=== PATIENT | female | born 2000 | race Caucasian/White ===

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

== ENCOUNTER → 2018-07-23 | Outpatient (CLI) | payer OTHER ==
--- NOTE | 2018-07-23 13:36 | US ---
EXAMINATION TYPE: US gallbladder DATE OF EXAM: 07/23/2018 COMPARISON: CT 2016 CLINICAL HISTORY: Cholecystitis K81.9. Hiatal hernia; epigastric and right lateral abd. pain EXAM MEASUREMENTS: Liver Length: 20.2 cm Gallbladder Wall: 0.2 cm CBD: 0.5 cm Right Kidney: 9.4 x 4.5 x 4.0 cm (large body habitus) Pancreas: mid and tail obscured by bowel gas Liver: enlarged and fatty as is hyperechoic to right renal cortex and vessels are limitedly seen Gallbladder: wnl Evidence for sonographic Ni's sign: no CBD: wnl Right Kidney: No hydronephrosis or masses seen Visualized portion of pancreas is unremarkable though there is suboptimal evaluation overall due to s hadowing from overlying bowel gas. Visualized liver is heterogeneously hyperechoic without intrahepat ic ductal dilatation. Evaluation for focal masses is suboptimal due to the heterogeneity. Suspect dif fuse fatty infiltration. Gallbladder is identified without shadowing mobile gallstones. Limited image s right kidney show no gross hydronephrosis. IMPRESSION: No gallstones or ultrasound evidence for acute cholecystitis.
--- NOTE | 2018-07-23 15:46 | NM ---
EXAMINATION TYPE: NM hepatobiliary w EF DATE OF EXAM: 07/23/2018 COMPARISON: Gallbladder ultrasound earlier today. HISTORY: Cholecystitis per order. Epigastric and abdominal pain with decreased appetite heartburn, re flux, and nausea per patient. TECHNIQUE: After the intravenous administration of 5.36 mCi Tc 99m Mebrofenin hepatobiliary scintigra phy is performed. Immediate images post injection. FINDINGS: There is satisfactory initial accumulation of tracer by the liver. The gallbladder is visualized wit hin 26 minutes. The small bowel activity is noted within 20 minutes. At one hour 8 ounces of oral e nsure plus is given to mimic CCK and gallbladder ejection fraction is calculated at 67 %, in the norm al range. Therefore there is no scintigraphic evidence of cystic or common bile duct obstruction to suggest acute cholecystitis or gallbladder dyskinesia. IMPRESSION: Exam is within normal limits.
== END | disposition home or self-care (01) ==
LOC: RADUSMAIN 12:34
PROVIDERS: ATTEND Surgery Plastic and Reconstructive Surgery
DX: K81.9 Cholecystitis, unspecified (principal); K21.9 Gastro-esophageal reflux disease without esophagitis
CPT/HCPCS: 76705; 78226; A9537

== ENCOUNTER 2018-08-13 12:11 | Day surgery (SDC) | payer OTHER ==
[2018-08-11 10:31] VITALS: BMI 59.8
--- NOTE | 2018-08-13 06:03 | P.GSHP ---
History of Present Illness H&P Date: 08/13/18 CHIEF COMPLAINT: GERD HISTORY OF PRESENT ILLNESS: The patient is a 17-year-old female who presents reports gastroesophageal reflux disease. Upper endoscopy was offered for further evaluation and management. PAST MEDICAL HISTORY: Please see list. PAST SURGICAL HISTORY: Please see list. MEDICATIONS: Please see list. ALLERGIES: Please see list. SOCIAL HISTORY: No illicit drug use FAMILY HISTORY: No reports of Crohn disease or ulcerative colitis. REVIEW OF ORGAN SYSTEMS: CONSTITUTIONAL: No reports of fevers or chills. GI: Denies any blood in stools or constipation. PHYSICAL EXAM: VITAL SIGNS: Stable GENERAL: Well-developed and pleasant in no acute distress. HEENT: No scleral icterus. Extraocular movements grossly intact. Moist buccal mucosa. NECK: Supple without lymphadenopathy. CHEST: Unlabored respirations. Equal bilateral excursions. CARDIOVASCULAR: Regular rate and rhythm. Distal 2+ pulses. ABDOMEN: Soft, nondistended. MUSCULOSKELETAL: No clubbing, cyanosis, or edema. ASSESSMENT: 1. Gastroesophageal reflux disease PLAN: 1. Recommend proceeding with an upper endoscopy Past Medical History Past Medical History: Asthma, Hypertension Additional Past Medical History / Comment(s): obesity , gestational DM chronic back herniated discs depression, abdominal hernia History of Any Multi-Drug Resistant Organisms: None Reported Past Surgical History: No Surgical Hx Reported Additional Past Surgical History / Comment(s): IUD in place., EGD, Past Anesthesia/Blood Transfusion Reactions: No Reported Reaction Additional Past Anesthesia/Blood Transfusion Reaction / Comment(s): Patient was adopted, family hx uncertain. Smoking Status: Current every day smoker - Past Family History Mother History Unknown: Yes Family Medical History: Unable to Obtain Additional Family Medical History / Comment(s): Pt adopted. Father History Unknown: Yes Family Medical History: Unable to Obtain Additional Family Medical History / Comment(s): ADOPTED Son(s) Family Medical History: No Reported History Medications and Allergies Home Medications Medication Instructions Recorded Confirmed Type Acyclovir [Zovirax] 400 mg PO BID #28 tablet 03/25/17 08/11/18 Rx QUEtiapine [SEROquel] 100 mg PO DAILY 08/11/18 08/11/18 History Allergies Allergy/AdvReac Type Severity Reaction Status Date / Time adhesive tape Allergy Rash/Hives Verified 08/11/18 10:20
[2018-08-13 12:44] VITALS: TEMP 99
[2018-08-13] MEDS ORDERED: LIDOCAINE 1% 20 ML VIAL (10MG/ML) FOR IV START INTRADERMA ONE (12:53)
[2018-08-13] MEDS ORDERED: PROPOFOL 10 MG/ML 20 ML VIAL IV ONE (13:28)
--- NOTE | 2018-08-13 13:45 | P.PCN ---
Date of Procedure: 08/13/18 Description of Procedure: PREOPERATIVE DIAGNOSIS: Gastroesophageal reflux disease. Morbid obesity. POSTOPERATIVE DIAGNOSIS: Morbid obesity. Gastritis. Gastroesophageal reflux disease. Diaphragmatic hiatal hernia Erosive esophagitis OPERATION: Esophagogastroduodenoscopy with biopsies along antrum. SURGEON: Aviva Bourgeois MD ANESTHESIA: MAC. INDICATIONS: The patient is a 17-year-old female who presents with a history of reflux disease. Benefits and risks of the procedure were described. Informed consent was obtained. DESCRIPTION: The patient was brought into the endoscopy suite and laid in the left lateral decubitus position. An Olympus gastroscope was passed along the posterior oropharynx down to the distal esophagus where the squamocolumnar junction was encountered at 30 cm from the incisors. The stomach was entered and no bile reflux was found. Additional findings are listed below. Biopsies with cold forceps were obtained of the antrum. The first through third portion of the duodenum was examined and unremarkable. Retroflexion of the scope confirmed Hill grade 4 lower esophageal valve. The squamocolumnar junction demonstrated LA grade C erosive esophagitis. The stomach was desufflated. The patient tolerated the procedure well. FINDINGS: Squamocolumnar junction 30 cm from the incisors. Diaphragmatic hiatus at 35 cm. Hiatal hernia, 5 cm Hill grade 4 lower esophageal valve. LA grade C erosive esophagitis. No active duodenitis. Chronic gastritis RECOMMENDATIONS: Upper endoscopy as needed. Plan - Discharge Summary Discharge Rx Participant: No New Discharge Prescriptions: New Omeprazole 40 mg PO DAILY #30 capsule. No Action Acyclovir [Zovirax] 400 mg PO BID #28 tablet QUEtiapine [SEROquel] 100 mg PO DAILY Discharge Medication List Acyclovir [Zovirax] 400 mg PO BID #28 tablet 03/25/17 [Rx] QUEtiapine [SEROquel] 100 mg PO DAILY 08/11/18 [History] Omeprazole 40 mg PO DAILY #30 capsule. 08/13/18 [Rx] Follow up Appointment(s)/Referral(s): Aviva Bourgeois MD [STAFF PHYSICIAN] - 09/07/18 Patient Instructions/Handouts: *Surgery [facility] - (Anesthesia) Endoscopy Discharge Instructions, Upper Endoscopy (DC), Hiatal Hernia (DC), Esophagitis (DC) Activity/Diet/Wound Care/Special Instructions: New prescription for local pharmacy. Notify office for new diarrhea and abdominal pain. Discharge Disposition: HOME SELF-CARE
[2018-08-13 13:50] VITALS: RESP 17
[2018-08-13 13:56] VITALS: BP 138/81; PULSE 79
== END 2018-08-13 14:15 | disposition home or self-care (01) ==
LOC: ORWHC2ENDO 12:11
PROVIDERS: ATTEND Surgery Plastic and Reconstructive Surgery
DX: K29.50 Unspecified chronic gastritis without bleeding (principal); J45.909 Unspecified asthma, uncomplicated; I10 Essential (primary) hypertension; E66.01 Morbid (severe) obesity due to excess calories; K21.0 Gastro-esophageal reflux disease with esophagitis; K22.10 Ulcer of esophagus without bleeding; K44.9 Diaphragmatic hernia without obstruction or gangrene; F17.200 Nicotine dependence, unspecified, uncomplicated; F32.9 Major depressive disorder, single episode, unspecified; Z79.899 Other long term (current) drug therapy; Z91.048 Other nonmedicinal substance allergy status
CPT/HCPCS: 81025; 88305; 43239; J2704

== ENCOUNTER → 2018-09-30 | Day surgery (SDC) | payer OTHER ==
[2018-09-24 16:16] VITALS: BMI 59.8
[~2018-09-30] MED LIST changes: +ALBUTEROL INHALER 60 PUFF/8 GM INHALER INHALATION ONE; +BUPIVACAIN-EPI 0.25%-1:200,000 30 ML VIAL SQ ONE; +DEXAMETHASONE SOD PHOSPHATE 10 MG/ML 1 ML VIAL IV ONE; +GLYCOPYRROLATE 0.2 MG/ML 2 ML VIAL ONE; +HEPARIN SODIUM,PORCINE 5,000 UNIT/ML 1 ML VIAL SQ ONE; +HYDROcodone/APAP 5-325MG 1 EACH TAB PO ONE; +HYDROmorphone 0.5 MG/0.5 ML SYRINGE IVP PRN; +INDOCYANINE GREEN 25 MG VIAL IV ONE; +INDOCYANINE GREEN 25 MG VIAL IV STA; +LACTATED RINGERS 1,000 ML IV ONE; +LIDOCAINE 1% 20 ML VIAL (10MG/ML) FOR IV START INTRADERMA PRN; +LIDOCAINE 1% INJ 10MG/ML (20 ML MDV) ONE; +MIDAZOLAM 2 MG/2 ML VIAL IV PRN; +MIDAZOLAM 2 MG/2 ML VIAL ONE; +NEOSTIGMINE 1 MG/ML 10 ML VIAL ONE; +ONDANSETRON 4 MG/2 ML VIAL IVP ONE; +PROPOFOL 10 MG/ML 20 ML VIAL IV ONE; +ROCURONIUM BROMIDE 10 MG/ML 10 ML VIAL IV ONE; +SCOPOLAMINE 1.5MG/72HR PATCH TRANSDERM ONE; +ceFAZolin 3 GM in SODIUM CHLORIDE 0.9% 100 ML IVPB ONE; +fentaNYL (PF) 50 MCG/ML 2 ML AMP ONE
--- NOTE | 2018-09-30 11:34 | P.GSHP ---
History of Present Illness H&P Date: 09/30/18 CHIEF COMPLAINT: Cholecystitis HISTORY OF PRESENT ILLNESS: The patient is a 17-year-old female who presents with history of epigastric including right upper quadrant abdominal pain. She underwent diagnostic studies for her gallbladder. Separately her clinical picture was consistent with cholecystitis. Now she presents for surgical intervention. PAST MEDICAL HISTORY: Please see list PAST SURGICAL HISTORY: Please see list MEDICATIONS: Please see list ALLERGIES: Denies. SOCIAL HISTORY: No illicit drug use or recent tobacco use FAMILY HISTORY: Pertinent for gallbladder disease REVIEW OF ORGAN SYSTEMS: CONSTITUTIONAL: No reports of fevers or chills. HEENT: Denies any troubles with the vision or hearing. PHYSICAL EXAM: VITAL SIGNS: Afebrile vital signs stable GENERAL: Well-developed pleasant in no acute distress. HEENT: No scleral icterus. Extraocular movements grossly intact. Moist buccal mucosa. NECK: Supple without lymphadenopathy. CHEST: Unlabored respirations. Equal bilateral excursions. CARDIOVASCULAR: Regular rate regular rhythm rhythm. Distal 2+ pulses. ABDOMEN: Soft, nondistended. Tender along the epigastrium and right upper quadrant. MUSCULOSKELETAL: No clubbing, cyanosis, or edema. NEURO: Cranial nerves II to XII within normal limits. No focal or lateralizing signs. PSYCH: Alert and oriented to person, place and time. SKIN: Well-perfused good skin turgor. ASSESSMENT: 1. Epigastric and right upper quadrant abdominal pain 2. Chronic cholecystitis 3. Symptomatic gallstones. PLAN: 1. Will need a robotic cholecystectomy possible open. Benefits and risks were described. 2. Heparin for DVT prophylaxis 5000 units. 3. Antibiotic prophylaxis. Past Medical History Past Medical History: Asthma, GERD/Reflux, Hyperlipidemia, Hypertension, Osteoarthritis (OA), Sleep Apnea/CPAP/BIPAP Additional Past Medical History / Comment(s): Obesity. Hx Gestational DM. Herniated discs, abdominal hernia. Hx anemia. No CPAP use. History of Any Multi-Drug Resistant Organisms: None Reported Past Surgical History: No Surgical Hx Reported Additional Past Surgical History / Comment(s): IUD placement, EGD. Past Anesthesia/Blood Transfusion Reactions: No Reported Reaction Additional Past Anesthesia/Blood Transfusion Reaction / Comment(s): Patient was adopted, family hx uncertain. Past Psychological History: Depression, Schizoaffective Disorder Smoking Status: Current every day smoker Past Alcohol Use History: Occasional Additional Past Alcohol Use History / Comment(s): Has been smoking since last month, 4 cigarettes per day. Past Drug Use History: Marijuana Additional Drug Use History / Comment(s): Pt states that she smokes Marijuana twice daily. Aware no use 24 hrs prior to procedure. - Past Family History Mother History Unknown: Yes Family Medical History: Unable to Obtain Additional Family Medical History / Comment(s): Pt adopted. Father History Unknown: Yes Family Medical History: Unable to Obtain Additional Family Medical History / Comment(s): ADOPTED Son(s) Family Medical History: No Reported History Medications and Allergies Home Medications Medication Instructions Recorded Confirmed Type Acyclovir [Zovirax] 400 mg PO BID #28 tablet 03/25/17 09/24/18 Rx QUEtiapine [SEROquel] 150 mg PO HS 08/11/18 09/24/18 History Hydrochlorothiazide 12.5 mg PO DAILY 09/24/18 09/24/18 History Omeprazole 40 mg PO QAM 09/24/18 09/24/18 History Allergies Allergy/AdvReac Type Severity Reaction Status Date / Time adhesive tape Allergy Rash/Hives Verified 09/24/18 16:16
[2018-09-30 14:16] LABS: Basophils # (A) 0.1 k/uL (0-0.2); Basophils % (A) 1 %; Eosinophils # (A) 0.3 k/uL (0-0.7); Eosinophils % (A) 3 %; HCT 42.8 % (34.0-46.0); HGB 14.5 gm/dL (11.4-16.0); Lymphocytes # (A) 2.4 k/uL (1.0-4.8); Lymphocytes % (A) 21 %; MCH 28.4 pg (25.0-35.0); MCHC 33.8 g/dL (31.0-37.0); MCV 83.9 fL (80.0-100.0); Mean Platelet Volume 8.8; Monocytes # (A) 0.8 k/uL (0-1.0); Monocytes % (A) 7 %; Neutrophils # (A) 7.8 k/uL (1.3-7.7); Neutrophils % (A) 69 %; Platelet Count 272 k/uL (150-450); RBC 5.11 m/uL (3.80-5.40); RDW 13.1 % (11.5-15.5); WBC 11.3 k/uL (4.0-11.0)
[2018-09-30 14:18] LABS: ALT 60 U/L (9-52); AST 52 U/L (14-36); Albumin 4.3 g/dL (3.5-5.0); Alkaline Phosphatase 86 U/L (38-126); Anion Gap 9 mmol/L; Blood Urea Nitrogen 16 mg/dL (7-17); Calcium 9.2 mg/dL (8.4-10.2); Carbon Dioxide 22 mmol/L (22-30); Chloride 107 mmol/L (98-107); Glucose 95 mg/dL (74-99); Sodium 138 mmol/L (137-145); Total Protein 7.2 g/dL (6.3-8.2)
[2018-09-30 15:58] VITALS: TEMP 97.3
--- NOTE | 2018-09-30 16:13 | P.OP ---
Date of Procedure: 09/30/18 Description of Procedure: SURGEON: AVIVA BOURGEOIS MD PREOPERATIVE DIAGNOSES: 1. Right upper quadrant abdominal pain 2. Chronic cholecystitis 3. Morbid obesity due to excess calories, BMI 59.8 4. Bipolar disorder 5. Hypertensive heart disease 6. Gastroesophageal reflux disease POSTOPERATIVE DIAGNOSES: 1. Right upper quadrant abdominal pain 2. Chronic cholecystitis 3. Morbid obesity due to excess calories, BMI 59.8 4. Bipolar disorder 5. Hypertensive heart disease 6. Gastroesophageal reflux disease 7. Fatty liver disease 8. Hepatomegaly OPERATION: Robotic-assisted da Markell Xi laparoscopic cholecystectomy, multiport with FIREFLY ESTIMATED BLOOD LOSS: 5 mL. SPECIMENS REMOVED: Gallbladder. COMPLICATIONS: None. OPERATIVE FINDINGS: 1. Chronic cholecystitis 2. Hepatomegaly severe with fatty liver disease severe 3. Console time 22 minutes INDICATIONS: The patient is a 17-year-old female who presents with cholelcystitis. Surgical intervention with a laparoscopic cholecystectomy was described at length including injury to the biliary tree, bleeding, infection, need for further surgery. Informed consent was obtained. Robotic assisted laparoscopic approach was described. Benefits and risks of the procedure including but not limited to bleeding, infection, injury to the biliary tree was described. Informed consent was obtained. DESCRIPTION OF PROCEDURE: Patient was brought to the operating room, placed in supine position. After general induction, the abdomen had been prepped and draped in standard sterile fashion. The robotic da Markell XI system was primed. After a timeout protocol was performed, the patient had been prepped and draped in standard sterile fashion. The patient was injected with indocyanine green. A 5 mm 0 degrees laparoscopic trocar entry was performed along the left upper quadrant. The abdomen insufflated to 15 mmHg pressure which was tolerated well. Diagnostic laparoscopy demonstrated no injury to bowel viscera or mesentery. The liver surface was unremarkable. Next, two 8 mm robotic ports were placed along the right upper abdomen. The camera 8-mm port was maintained along the epigastrium. Another 8 mm port was placed along the left upper abdominal wall after exchanging the 5 mm port. Please note that the ports were placed at least 10 to 15 cm away from the target anatomy of the gallbladder. The robot was docked along the left lateral abdomen. The patient was repositioned in reverse Trendelenburg position. Using a grasper for arm 3, a grasper for arm 4, including hook cautery for arm 1, the robotic system was docked and primed as described. Instruments were interchanged by the digital sales assistant including hook cautery, Bovie cautery and clip appliers. I had sat at the console. The gallbladder fundus was retracted over the dome of the liver. Initial attention was brought to the infundibulum which was gently retracted in the inferior lateral approach. Using a grasper, the cystic duct including the cystic artery was carefully skeletonized. FIREFLY was used to identify the cystic artery and cystic structures. Large PLASTIC clips were used throughout the entire case. Using a clip gravity prospecting operator helper 2 clips were placed proximally, and 1 clip was placed distally along the cystic duct and then cauterized with the cautery. Again care was taken to avoid any injury to the biliary tree as the common bile duct was clearly visualized during this portion of dissection. Next, the cystic artery was similarly clipped and cauterized. Electro-Bovie cautery was used to remove the gallbladder from the hepatic fossa. Hemostasis was checked and found to be adequate. The robot was undocked. I re-scrubbed into the case. Using a 10 mm Endo Catch bag via the left upper quadrant incision, the specimen was removed from the abdominal cavity. All pneumoperitoneum instruments were evacuated from the abdominal cavity. The incisions were reapproximated using 4-0 Monocryl in an interrupted subcuticular fashion. Fascial defects were less than 8 mm in size. Please note along the trocar sites, local anesthetic was placed as a field block prior to insertion of all instruments. Liquid glue was applied to the skin. At the end of the procedure needle, sponge, and instrument count had been verified correct by the neurosurgical nurse practitioner. The patient was transferred to postanesthesia care unit in stable condition. Intraoperative films were shared with the patient's family who were very pleased with the level of care. Plan - Discharge Summary Discharge Rx Participant: No New Discharge Prescriptions: New Ibuprofen [Motrin] 600 mg PO Q8HR PRN #30 tab PRN Reason: Pain HYDROcodone/APAP 5-325MG [[place] 5-325] 1 tab PO Q6HR PRN 3 Days #10 tab PRN Reason: Pain Continue Acyclovir [Zovirax] 400 mg PO BID #28 tablet QUEtiapine [SEROquel] 150 mg PO HS Hydrochlorothiazide 12.5 mg PO DAILY Omeprazole 40 mg PO QAM Discharge Medication List Acyclovir [Zovirax] 400 mg PO BID #28 tablet 03/25/17 [Rx] QUEtiapine [SEROquel] 150 mg PO HS 08/11/18 [History] Hydrochlorothiazide 12.5 mg PO DAILY 09/24/18 [History] Omeprazole 40 mg PO QAM 09/24/18 [History] HYDROcodone/APAP 5-325MG [[place] 5-325] 1 tab PO Q6HR PRN 3 Days #10 tab 09/30/18 [Rx] Ibuprofen [Motrin] 600 mg PO Q8HR PRN #30 tab 09/30/18 [Rx] Follow up Appointment(s)/Referral(s): Aviva Bourgeois MD [STAFF PHYSICIAN] - 10/05/18 Patient Instructions/Handouts: Low Fat Diet (DC), Laparoscopic Cholecystectomy (DC) Activity/Diet/Wound Care/Special Instructions: No lifting over 10 pounds in 1 week. May shower. No bath tub soaks. Low-fat diet. Discharge Disposition: HOME SELF-CARE
[2018-09-30 18:10] VITALS: BP 116/80; PULSE 97; RESP 20
== END | disposition home or self-care (01) ==
LOC: OR 11:51
PROVIDERS: ATTEND Surgery Plastic and Reconstructive Surgery
DX: K81.1 Chronic cholecystitis (principal); E66.01 Morbid (severe) obesity due to excess calories; Z68.43 Body mass index [BMI] 50.0-59.9, adult; F31.9 Bipolar disorder, unspecified; I11.9 Hypertensive heart disease without heart failure; K21.9 Gastro-esophageal reflux disease without esophagitis; K76.0 Fatty (change of) liver, not elsewhere classified; R16.0 Hepatomegaly, not elsewhere classified; E78.5 Hyperlipidemia, unspecified; J45.909 Unspecified asthma, uncomplicated; B00.9 Herpesviral infection, unspecified; M19.90 Unspecified osteoarthritis, unspecified site; G47.33 Obstructive sleep apnea (adult) (pediatric); F17.210 Nicotine dependence, cigarettes, uncomplicated; Z79.1 Long term (current) use of non-steroidal anti-inflammatories (NSAID); Z79.899 Other long term (current) drug therapy; Z91.09 Other allergy status, other than to drugs and biological substances; Z99.89 Dependence on other enabling machines and devices
CPT/HCPCS: 47562; S2900; 80053; 81025; 85025; 88304

== ENCOUNTER 2019-02-12 18:14 | Emergency (ER) | payer OTHER ==
[2019-02-12] MEDS ORDERED: HYDROcodone/APAP 7.5-325MG 1 EACH TAB PO ONE (19:23)
[2019-02-12] MEDS ORDERED: ACET/COD 300 MG/30 MG STARTER PACK 6 TAB BTL PO STA (19:57)
--- NOTE | 2019-02-12 19:57 | ED ---
General Adult HPI - General Chief complaint: Burn/Smoke Inhalation Stated complaint: Burn on hand Time Seen by Provider: 02/12/19 19:13 Source: patient, family, RN notes reviewed, old records reviewed Mode of arrival: ambulatory Limitations: no limitations - History of Present Illness Initial comments: 18-year-old female patient presents the chief complaint of burn to left hand. Patient reports that she was cooking with the spatula on the stovetop. Patient reports that she then touched the spatula. Patient had some plastic stuck on the second digit of her left hand. Patient reports that she removed the plastic and does have a burn. Patient tetanus is up-to-date. Denies any other complaints. Systemic: Pt denies fatigue, fever/chills, rash. Pt denies weakness, night sweats, weight loss. Neuro: Pt denies headache, visual disturbances, syncope or pre-syncope. HEENT: Pt denies ocular discharge or irritation, otalgia, rhinorrhea, pharyngitis or notable lymphadenopathy. Cardiopulmonary: Pt denies chest pain, SOB, heart palpitations, dyspnea on exertion. Abdominal/GI: Pt denies abdominal pain, n/v/d. : Pt denies dysuria, burning w/ urination, frequency/urgency. Denies new onset urinary or bowel incontinence. MSK: Pt denies myalgia, loss of strength or function in extremities. Neuro: Pt denies new onset weakness, paresthesias. - Related Data Home Medications Medication Instructions Recorded Confirmed QUEtiapine [SEROquel] 150 mg PO HS 08/11/18 09/30/18 Hydrochlorothiazide 12.5 mg PO DAILY 09/24/18 09/30/18 Omeprazole 40 mg PO QAM 09/24/18 09/30/18 Previous Rx's Medication Instructions Recorded Acyclovir [Zovirax] 400 mg PO BID #28 tablet 03/25/17 HYDROcodone/APAP 5-325MG [[place] 1 tab PO Q6HR PRN 3 Days #10 tab 09/30/18 5-325] Ibuprofen [Motrin] 600 mg PO Q8HR PRN #30 tab 09/30/18 Bacitracin Oint 28.4 gm TOPICAL BID 14 Days #1 tube 02/12/19 Allergies Allergy/AdvReac Type Severity Reaction Status Date / Time adhesive tape Allergy Rash/Hives Verified 02/12/19 19:15 Review of Systems ROS Statement: Those systems with pertinent positive or pertinent negative responses have been documented in the HPI. ROS Other: All systems not noted in ROS Statement are negative. Past Medical History Past Medical History: Asthma, GERD/Reflux, Hyperlipidemia, Hypertension, Osteoarthritis (OA), Sleep Apnea/CPAP/BIPAP Additional Past Medical History / Comment(s): Obesity. Hx Gestational DM. Herniated discs, abdominal hernia. Hx anemia. No CPAP use. History of Any Multi-Drug Resistant Organisms: None Reported Past Surgical History: Cholecystectomy Additional Past Surgical History / Comment(s): IUD placement, EGD. Past Anesthesia/Blood Transfusion Reactions: No Reported Reaction Additional Past Anesthesia/Blood Transfusion Reaction / Comment(s): Patient was adopted, family hx uncertain. Past Psychological History: Depression, Schizoaffective Disorder Smoking Status: Former smoker Past Alcohol Use History: Occasional Past Drug Use History: Marijuana - Past Family History Mother History Unknown: Yes Family Medical History: Unable to Obtain Additional Family Medical History / Comment(s): Pt adopted. Father History Unknown: Yes Family Medical History: Unable to Obtain Additional Family Medical History / Comment(s): ADOPTED Son(s) Family Medical History: No Reported History General Exam - General Exam Comments Initial Comments: Constitutional: NAD, AOX3, Pt has pleasant affect. HEENT: NC/AT, trachea midline, neck supple, no lymphadenopathy. Posterior pharynx non erythematous, without exudates. External ears appear normal, without discharge. Mucous membranes moist. Eyes PERRLA, EOM intact. There is no scleral icterus. No pallor noted. Cardiopulmonary: RRR, no murmurs, rubs or gallops, no JVD noted. Lungs CTAB in anterior and posterior lewis. No peripheral edema. Abdominal exam: Abdomen soft and non-distended. Abdomen non-tender to palpation in all 4 quadrants. Bowel sounds active in LLQ. No hepatosplenomegaly. No e cchymosis Neuro: CN II-XII grossly intact. No nuchal rigidity. No raccon eyes, no cid sign, no hemotympanum. No cervical spinal tenderness. MSK: No posterior calf tenderness bilaterally, homans sign negative bilaterally. Posterior tibialis and radial pulse +2 bilaterally. Sensation intact in upper and lower extremities. Full active ROM in upper and lower extremities, 5/5 stregnth. Derm: Deep partial-thickness burn noted to interspacing between MCP and PIP joint second digit of left hand palmar aspect. Does not cross joints. Limitations: no limitations Course Vital Signs 02/12/19 19:13 Temperature 97.2 F L Pulse Rate 96 Respiratory 18 Rate Blood Pressure 164/90 O2 Sat by Pulse 97 Oximetry Medical Decision Making - Medical Decision Making 18-year-old female patient presents the chief complaint of burn to left hand. Patient reports that she was cooking with the spatula on the stovetop. Patient reports that she then touched the spatula. Patient had some plastic stuck on the second digit of her left hand. Patient reports that she removed the plastic and does have a burn. Patient tetanus is up-to-date. Denies any other complaints. Vital signs stable, afebrile. Physical exam displayed: Deep partial-thickness burn noted to interspacing between MCP and PIP joint second digit of left hand palmar aspect. Does not cross joints. Wound was cleaned. Patient will be discharged with close outpatient follow-up. Bacitracin ointment. Case discussed with Dr. Rico. Disposition Clinical Impression: Deep partial thickness burn of finger Disposition: HOME SELF-CARE Condition: Stable Instructions (If sedation given, give patient instructions): Second Degree Burn (ED) Additional Instructions: Patient to adhere to previously discussed treatment plan and will take medication(s) as directed. Patient to follow up with PCP in 1-2 days. Patient to return to ED if symptoms do not improve. Apply ointment to burn 2 times a day. Have close outpatient follow-up with primary care provider on Thursday to ensure proper healing. Monitor for signs and symptoms of infection. Prescriptions: Bacitracin Oint 28.4 gm TOPICAL BID 14 Days #1 tube Is patient prescribed a controlled substance at d/c from ED?: No Referrals: Shorty Louis MD [Primary Care Provider] - 1-2 days
[2019-02-12 20:04] VITALS: BP 142/82; PULSE 78; RESP 20; TEMP 97.9
== END 2019-02-12 20:04 | disposition home or self-care (01) ==
LOC: EC 18:14
DX: T23.022A Burn of unspecified degree of single left finger (nail) except thumb, initial encounter (principal); F25.1 Schizoaffective disorder, depressive type; I10 Essential (primary) hypertension; K21.9 Gastro-esophageal reflux disease without esophagitis; Z79.899 Other long term (current) drug therapy; Z87.891 Personal history of nicotine dependence; Z91.048 Other nonmedicinal substance allergy status; X08.8XXA Exposure to other specified smoke, fire and flames, initial encounter; Y93.G3 Activity, cooking and baking; Y92.009 Unspecified place in unspecified non-institutional (private) residence as the place of occurrence of the external cause; Z97.5 Presence of (intrauterine) contraceptive device
CPT/HCPCS: 99284

== ENCOUNTER 2019-05-29 21:30 | Emergency (ER) | payer OTHER ==
[2019-05-29 21:59] LABS: Appearance,Urine Clear (Clear); Bilirubin,Urine Negative (Negative); Blood,Urine Negative (Negative); Color,Urine Yellow; Glucose,Urine (UA) Negative (Negative); Ketones,Urine Negative (Negative); Leukocyte Esterase,Urine Negative (Negative); Nitrite,Urine Negative (Negative); PH, Urine 6.5 (5.0-8.0); Protein,Urine Negative (Negative); Specific Gravity,Urine 1.012 (1.001-1.035); Urobilinogen,Urine <2.0 mg/dL (<2.0)
[2019-05-29] MEDS ORDERED: SODIUM CHLORIDE 0.9% 1,000 ML IV STA (23:05)
[2019-05-29] MEDS ORDERED: KETOROLAC 30 MG/ML 1 ML VIAL IVP STA (23:06)
--- NOTE | 2019-05-29 23:45 | XR ---
EXAMINATION TYPE: XR KUB DATE OF EXAM: 05/29/2019 COMPARISON: 03/08/2016 HISTORY: Abdominal pain TECHNIQUE: 2 views upright FINDINGS: There is no sign of intestinal obstruction or pneumoperitoneum. Lung bases appear clear. Th ere are no pathologic calcifications over the kidneys. There is no evidence of abdominal mass. There is IUD noted in the midline pelvis. IMPRESSION: Nonacute abdomen. No change.
[2019-05-29 23:49] LABS: Basophils # (A) 0.1 k/uL (0-0.2); Basophils % (A) 1 %; Eosinophils # (A) 0.3 k/uL (0-0.7); Eosinophils % (A) 2 %; HGB 14.6 gm/dL (11.4-16.0); Lymphocytes # (A) 3.6 k/uL (1.0-4.8); Lymphocytes % (A) 25 %; MCH 29.3 pg (25.0-35.0); MCHC 33.2 g/dL (31.0-37.0); MCV 88.4 fL (80.0-100.0); Mean Platelet Volume 7.7; Monocytes # (A) 0.8 k/uL (0-1.0); Monocytes % (A) 5 %; Neutrophils # (A) 9.3 k/uL (1.3-7.7); Neutrophils % (A) 65 %; Platelet Count 283 k/uL (150-450); RBC 4.98 m/uL (3.80-5.40); RDW 12.1 % (11.5-15.5); WBC 14.2 k/uL (4.0-11.0)
[2019-05-30 00:03] LABS: ALT 121 U/L (4-34); AST 92 U/L (14-36); African American GFR (CKD) >90 (>60 ml/min/1.73 sqM); Albumin 4.6 g/dL (3.5-5.0); Alkaline Phosphatase 109 U/L (38-126); Amylase 33 U/L (30-110); Anion Gap 11 mmol/L; Blood Urea Nitrogen 7 mg/dL (7-17); Calcium 9.4 mg/dL (8.4-10.2); Carbon Dioxide 25 mmol/L (22-30); Chloride 102 mmol/L (98-107); Glucose 88 mg/dL (74-99); Non-African American GFR(CKD) >90 (>60 ml/min/1.73 sqM); Potassium 3.9 mmol/L (3.5-5.1); Sodium 138 mmol/L (137-145); Total Bilirubin 1.6 mg/dL (0.2-1.3); Total Protein 7.5 g/dL (6.3-8.2)
--- NOTE | 2019-05-30 01:20 | US ---
EXAMINATION TYPE: US abdomen limited DATE OF EXAM: 05/30/2019 COMPARISON: NONE CLINICAL HISTORY: Upper abd pain/back pain. Pain. Exam limitations due to body habitus. EXAM MEASUREMENTS: Liver Length: 22 cm Gallbladder Wall: Surgically absent cm CBD: .7 cm Right Kidney: 10.2 x 4.1 x 4.6 cm Pancreas: Obscured by bowel gas Liver: Increased attenuation hepatomegaly Gallbladder: Surgically absent Evidence for sonographic Ni's sign: No CBD: wnl Right Kidney: wnl Right kidney shows no hydronephrosis. IMPRESSION: There is some hepatomegaly. No focal defect. No dilated ducts.
[2019-05-30 01:34] VITALS: RESP 18
--- NOTE | 2019-05-30 01:54 | ED ---
General Adult HPI - General Chief complaint: Urogenital Stated complaint: Kidney Pain Time Seen by Provider: 05/29/19 22:29 Source: patient Mode of arrival: ambulatory Limitations: no limitations - History of Present Illness Initial comments: 18-year-old female patient presents to the emergency department today for evaluation of pain across her mid back. Patient believes she may have a kidney infection. Patient states the pain has been present for the last 3 days. She denies any exacerbating or relieving factors. States that she was nauseated estella ost vomited yesterday. Denies any constipation or diarrhea. Denies any hematuria, dysuria or urinary urgency. States she has been urinating a little bit more frequently. Denies any fevers or chills. Denies any history of similar symptoms. Denies any back injury. Denies radiation of the pain down her legs. Denies numbness or tingling to her extremities. Denies saddle anesthesia or loss of bowel or bladder control. Patient denies any recent rash, shortness breath, chest pain, numbness, tingling, dizziness, weakness, headache, visual changes, or any other complaints. - Related Data Home Medications Medication Instructions Recorded Confirmed QUEtiapine [SEROquel] 150 mg PO HS 08/11/18 09/30/18 Hydrochlorothiazide 12.5 mg PO DAILY 09/24/18 09/30/18 Omeprazole 40 mg PO QAM 09/24/18 09/30/18 Previous Rx's Medication Instructions Recorded Acyclovir [Zovirax] 400 mg PO BID #28 tablet 03/25/17 HYDROcodone/APAP 5-325MG [[place] 1 tab PO Q6HR PRN 3 Days #10 tab 09/30/18 5-325] Ibuprofen [Motrin] 600 mg PO Q8HR PRN #30 tab 09/30/18 Bacitracin Oint 28.4 gm TOPICAL BID 14 Days #1 tube 02/12/19 Allergies Allergy/AdvReac Type Severity Reaction Status Date / Time adhesive tape Allergy Rash/Hives Verified 05/29/19 21:35 Review of Systems ROS Statement: Those systems with pertinent positive or pertinent negative responses have been documented in the HPI. ROS Other: All systems not noted in ROS Statement are negative. Past Medical History Past Medical History: Asthma, GERD/Reflux, Hyperlipidemia, Hypertension, Osteoarthritis (OA), Sleep Apnea/CPAP/BIPAP Additional Past Medical History / Comment(s): Obesity. Hx Gestational DM. Her niated discs, abdominal hernia. Hx anemia. No CPAP use. History of Any Multi-Drug Resistant Organisms: None Reported Past Surgical History: Cholecystectomy Additional Past Surgical History / Comment(s): IUD placement, EGD. Past Anesthesia/Blood Transfusion Reactions: No Reported Reaction Additional Past Anesthesia/Blood Transfusion Reaction / Comment(s): Patient was adopted, family hx uncertain. Past Psychological History: Depression, Schizoaffective Disorder Smoking Status: Former smoker Past Alcohol Use History: Occasional Past Drug Use History: Marijuana - Past Family History Mother History Unknown: Yes Family Medical History: Unable to Obtain Additional Family Medical History / Comment(s): Pt adopted. Father History Unknown: Yes Family Medical History: Unable to Obtain Additional Family Medical History / Comment(s): ADOPTED Son(s) Family Medical History: No Reported History General Exam Limitations: no limitations General appearance: alert, in no apparent distress, other (This is a well- developed, well-nourished adult female patient in no acute distress. Vital signs upon presentation are temperature 99.0F, pulse 95, respirations 20, blood pressure 145/91, pulse ox 98% on room air.) Eye exam: Present: normal appearance, PERRL, EOMI. Absent: scleral icterus, conjunctival injection, periorbital swelling ENT exam: Present: normal exam, normal oropharynx, mucous membranes moist Respiratory exam: Present: normal lung sounds bilaterally. Absent: respiratory distress, wheezes, rales, rhonchi, stridor Cardiovascular Exam: Present: regular rate, normal rhythm, normal heart sounds. Absent: systolic murmur, diastolic murmur, rubs, gallop, clicks GI/Abdominal exam: Present: soft, normal bowel sounds. Absent: distended, tenderness, guarding, rebound, rigid Back exam: Present: CVA tenderness (R) (mild), CVA tenderness (L) (mild) Neurological exam: Present: alert, oriented X3, CN II-XII intact Psychiatric exam: Present: normal affect, normal mood Skin exam: Present: warm, dry, intact, normal color. Absent: rash Course Vital Signs 05/29/19 05/29/19 05/30/19 21:33 23:30 01:34 Temperature 99.0 F 98 F Pulse Rate 95 72 85 Respiratory 20 17 18 Rate Blood Pressure 145/91 137/81 117/79 O2 Sat by Pulse 98 99 97 Oximetry 05/30/19 02:18 Temperature 97 F L Pulse Rate 74 Respiratory 18 Rate Blood Pressure 134/84 O2 Sat by Pulse 98 Oximetry Medical Decision Making - Medical Decision Making 18-year-old female patient presented to the emergency department today for evaluation of mid back pain. Physical examination revealed mild CVA tenderness bilaterally. Patient had generalized abdominal tenderness. Labs reviewed and did reveal elevated white blood cell count and elevated liver enzymes, elevated bilirubin. Ultrasound was performed to rule out choledocholithiasis, ultrasound was normal. Upon reevaluation patient is feeling better. We will discharge home to follow-up with her primary care physician for recheck in 1-2 days. Return parameters discussed in detail. He verbalizes understanding and agrees with this plan. - Lab Data Result diagrams: 05/29/19 23:33 05/29/19 23:33 Lab Results 05/29/19 05/29/19 05/29/19 Range/Units 21:36 21:36 23:33 WBC (4.0-11.0) k/uL RBC (3.80-5.40) m/uL Hgb (11.4-16.0) gm/dL Hct (34.0-46.0) % MCV (80.0-100.0) fL MCH (25.0-35.0) pg MCHC (31.0-37.0) g/dL RDW (11.5-15.5) % Plt Count (150-450) k/uL Neutrophils % % Lymphocytes % % Monocytes % % Eosinophils % % Basophils % % Neutrophils # (1.3-7.7) k/uL Lymphocytes # (1.0-4.8) k/uL Monocytes # (0-1.0) k/uL Eosinophils # (0-0.7) k/uL Basophils # (0-0.2) k/uL Sodium 138 (137-145) mmol/L Potassium 3.9 (3.5-5.1) mmol/L Chloride 102 (98-107) mmol/L Carbon Dioxide 25 (22-30) mmol/L Anion Gap 11 mmol/L BUN 7 (7-17) mg/dL Creatinine 0.63 (0.52-1.04) mg/dL Est GFR (CKD-EPI)AfAm >90 (>60 ml/min/1.73 sqM) Est GFR (CKD-EPI)NonAf >90 (>60 ml/min/1.73 sqM) Glucose 88 (74-99) mg/dL Plasma Lactic Acid Sonny (0.7-2.0) mmol/L Calcium 9.4 (8.4-10.2) mg/dL Total Bilirubin 1.6 H (0.2-1.3) mg/dL AST 92 H (14-36) U/L ALT 121 H (4-34) U/L Alkaline Phosphatase 109 (38-126) U/L Total Protein 7.5 (6.3-8.2) g/dL Albumin 4.6 (3.5-5.0) g/dL Amylase 33 (30-110) U/L Lipase 32 (23-300) U/L Urine Color Yellow Urine Appearance Clear (Clear) Urine pH 6.5 (5.0-8.0) Ur Specific [place] 1.012 (1.001-1.035) Urine Protein Negative (Negative) Urine Glucose (UA) Negative (Negative) Urine Ketones Negative (Negative) Urine Blood Negative (Negative) Urine Nitrite Negative (Negative) Urine Bilirubin Negative (Negative) Urine Urobilinogen <2.0 (<2.0) mg/dL Ur Leukocyte Esterase Negative (Negative) Urine HCG, Qual Not Detected (Not Detectd) 05/29/19 05/29/19 Range/Units 23:33 23:33 WBC 14.2 H (4.0-11.0) k/uL RBC 4.98 (3.80-5.40) m/uL Hgb 14.6 (11.4-16.0) gm/dL Hct 44.0 (34.0-46.0) % MCV 88.4 (80.0-100.0) fL MCH 29.3 (25.0-35.0) pg MCHC 33.2 (31.0-37.0) g/dL RDW 12.1 (11.5-15.5) % Plt Count 283 (150-450) k/uL Neutrophils % 65 % Lymphocytes % 25 % Monocytes % 5 % Eosinophils % 2 % Basophils % 1 % Neutrophils # 9.3 H (1.3-7.7) k/uL Lymphocytes # 3.6 (1.0-4.8) k/uL Monocytes # 0.8 (0-1.0) k/uL Eosinophils # 0.3 (0-0.7) k/uL Basophils # 0.1 (0-0.2) k/uL Sodium (137-145) mmol/L Potassium (3.5-5.1) mmol/L Chloride (98-107) mmol/L Carbon Dioxide (22-30) mmol/L Anion Gap mmol/L BUN (7-17) mg/dL Creatinine (0.52-1.04) mg/dL Est GFR (CKD-EPI)AfAm (>60 ml/min/1.73 sqM) Est GFR (CKD-EPI)NonAf (>60 ml/min/1.73 sqM) Glucose (74-99) mg/dL Plasma Lactic Acid Sonny 1.1 (0.7-2.0) mmol/L Calcium (8.4-10.2) mg/dL Total Bilirubin (0.2-1.3) mg/dL AST (14-36) U/L ALT (4-34) U/L Alkaline Phosphatase (38-126) U/L Total Protein (6.3-8.2) g/dL Albumin (3.5-5.0) g/dL Amylase (30-110) U/L Lipase (23-300) U/L Urine Color Urine Appearance (Clear) Urine pH (5.0-8.0) Ur Specific [place] (1.001-1.035) Urine Protein (Negative) Urine Glucose (UA) (Negative) Urine Ketones (Negative) Urine Blood (Negative) Urine Nitrite (Negative) Urine Bilirubin (Negative) Urine Urobilinogen (<2.0) mg/dL Ur Leukocyte Esterase (Negative) Urine HCG, Qual (Not Detectd) - Radiology Data Radiology results: report reviewed Ultrasound of the right upper quadrant was obtained. Report was reviewed in its entirety. Impression by Dr. Estrada shows some hepatomegaly. No focal defect. No dilated ducts. 2 views of the abdomen are obtained. Report was reviewed in its entirety. Impression by Dr. Estrada shows nonacute abdomen. No change Disposition Clinical Impression: Back pain Disposition: HOME SELF-CARE Condition: Good Instructions (If sedation given, give patient instructions): Back Pain (ED) Additional Instructions: Take Tylenol and Motrin for pain control. Increase fluids. Follow up with your primary care physician for recheck in 1-2 days. Return to the emergency department immediately for any new, worsening, or concerning symptoms. Is patient prescribed a controlled substance at d/c from ED?: No Referrals: Shorty Louis MD [Primary Care Provider] - 1-2 days Time of Disposition: 01:54
[2019-05-30 02:19] VITALS: BP 134/84; PULSE 74; TEMP 97
== END 2019-05-30 02:19 | disposition home or self-care (01) ==
LOC: EC 21:30
DX: M54.9 Dorsalgia, unspecified (principal); R11.2 Nausea with vomiting, unspecified; R10.817 Generalized abdominal tenderness; I10 Essential (primary) hypertension; F32.9 Major depressive disorder, single episode, unspecified; K21.9 Gastro-esophageal reflux disease without esophagitis; G47.30 Sleep apnea, unspecified; E66.9 Obesity, unspecified; Z68.43 Body mass index [BMI] 50.0-59.9, adult; Z79.899 Other long term (current) drug therapy; Z91.048 Other nonmedicinal substance allergy status; Z87.891 Personal history of nicotine dependence; Z90.49 Acquired absence of other specified parts of digestive tract; Z99.89 Dependence on other enabling machines and devices
CPT/HCPCS: 36415; 80053; 82150; 83605; 83690; 85025; 81003; 81025; 74018; 76705; 99284; 96374; 96361 ×2; J1885

== ENCOUNTER → 2020-10-25 | Outpatient (CLI) | payer OTHER ==
--- NOTE | 2020-10-27 19:00 | CT ---
EXAMINATION TYPE: CT ankle RT wo con DATE OF EXAM: 10/25/2020 COMPARISON: No radiographic correlation available HISTORY: 19-year-old female M25.571, Right ankle pain, no injury. TECHNIQUE: Contiguous axial scanning of the right ankle without IV contrast. Coronal and sagittal rec onstructions performed. 3-D reconstructions generated on a dedicated independent workstation. CT DLP: 268 mGycm Automated exposure control for dose reduction was used. FINDINGS: There is bony spurring at the anterior inferior tibial tubercle and ossification and bony outgrowth a t the fibular insertion of the anterior inferior tibiofibular ligament. Tiny spur at the inferior fibula at the ATFL attachment suggesting some traction related changes or r emote sprain. No acute fracture, subluxation, or dislocation. Joint spaces throughout are maintained. Talar dome is intact. Subtalar joint alignment. Small delineation to the Achilles tendon. IMPRESSION: PROMINENT SPURRING AND NEARLY BRIDGING OSSIFICATION ALONG THE EXPECTED AITFL SUGGESTS REMOTE ANTERIOR SYNDESMOTIC INJURY. NO FERNANDO SYNDESMOTIC WIDENING OR OTHERWISE ANY ACUTE OR HEALING FRACTURE IDENTIF IED.
== END | disposition home or self-care (01) ==
LOC: RADCTMAIN 15:30
PROVIDERS: ATTEND Podiatrist
DX: S82.391K Other fracture of lower end of right tibia, subsequent encounter for closed fracture with nonunion (principal); M25.571 Pain in right ankle and joints of right foot; X58.XXXD Exposure to other specified factors, subsequent encounter

== ENCOUNTER → 2020-11-23 | Day surgery (SDC) | payer MEDICARE, OTHER ==
[2020-11-22 11:48] VITALS: BMI 57.5
[~2020-11-23] MED LIST changes: -ALBUTEROL INHALER 60 PUFF/8 GM INHALER INHALATION ONE; -BUPIVACAIN-EPI 0.25%-1:200,000 30 ML VIAL SQ ONE; -DEXAMETHASONE SOD PHOSPHATE 10 MG/ML 1 ML VIAL IV ONE; +DEXAMETHASONE SOD PHOSPHATE 4 MG/ML 1 ML VIAL IV ONE; +DEXAMETHASONE SOD PHOSPHATE 4 MG/ML 1 ML VIAL ONE; -GLYCOPYRROLATE 0.2 MG/ML 2 ML VIAL ONE; -HEPARIN SODIUM,PORCINE 5,000 UNIT/ML 1 ML VIAL SQ ONE; -HYDROcodone/APAP 5-325MG 1 EACH TAB PO ONE; +HYDROcodone/APAP 7.5-325MG 1 EACH TAB ONE; +HYDROcodone/APAP 7.5-325MG 1 EACH TAB PO ONE; -HYDROmorphone 0.5 MG/0.5 ML SYRINGE IVP PRN; -INDOCYANINE GREEN 25 MG VIAL IV ONE; -INDOCYANINE GREEN 25 MG VIAL IV STA; +KETAMINE 10 MG/ML 20 ML VIAL ONE; +KETOROLAC 15 MG/ML 1 ML VIAL IVP ONE; +KETOROLAC 15 MG/ML 1 ML VIAL ONE; -LIDOCAINE 1% 20 ML VIAL (10MG/ML) FOR IV START INTRADERMA PRN; +MIDAZOLAM 2 MG/2 ML VIAL IVP ONE; -NEOSTIGMINE 1 MG/ML 10 ML VIAL ONE; -ROCURONIUM BROMIDE 10 MG/ML 10 ML VIAL IV ONE; +ROPIVACAINE 5 MG/ML 30 ML VIAL ONE; +SUCCINYLCHOLINE CHLORIDE VIAL 200 MG/10 ML VIAL IV ONE; +ceFAZolin 1,000 MG in SODIUM CHLORIDE 0.9% 1,000 ML IRRIGATION ONE; -ceFAZolin 3 GM in SODIUM CHLORIDE 0.9% 100 ML IVPB ONE; +ceFAZolin 3 GM in SODIUM CHLORIDE 0.9% 100 ML IVPB PRN
--- NOTE | 2020-11-23 10:37 | P.ANPRN ---
Procedure Note - Anesthesia - Nerve Block Performed Right Adductor Canal Single Time Out Performed: Yes Date of Procedure: 11/23/20 Procedure Start Time: 10: Procedure Stop Time: 10:30 Location of Patient: PreOp Indication: Acute Post-Operative Pain, Requested by Surgeon Sedation Type: Sedate with meaningful contact maintained Preparation: Sterile Prep, Sterile Dressing Position: Supine Catheter: None Needle Types: Pajunk Needle Gauge: 20 Ultrasound used to visualize needle placement: Yes Ultrasound used to observe medication spread: Yes Injectate: 0.5% Ropivacaine (see comment for volume) (15 ml + decadron 4 mg) Blood Aspirated: No Pain Paresthesia on Injection Noted: No Resistance on Injection: Normal Image Stored and Saved: Yes Events: Uneventful and Well Tolerated Right Popliteal Single Date of Procedure: 11/23/20 Procedure Start Time: : Procedure Stop Time: 10:36 Location of Patient: PreOp Indication: Acute Post-Operative Pain, Requested by Surgeon Sedation Type: Sedate with meaningful contact maintained Preparation: Sterile Prep, Sterile Dressing Position: Left Lateral Catheter: None Needle Types: Pajunk Needle Gauge: 20 Ultrasound used to visualize needle placement: Yes Ultrasound used to observe medication spread: Yes Injectate: 0.5% Ropivacaine (see comment for volume) (15 ml + decadron 4 mg) Blood Aspirated: No Pain Paresthesia on Injection Noted: No Resistance on Injection: Normal Image Stored and Saved: Yes Events: Uneventful and Well Tolerated
[2020-11-23 12:25] VITALS: TEMP 98
--- NOTE | 2020-11-23 12:40 | P.OP ---
Date of Procedure: 11/23/20 Preoperative Diagnosis: 1. Ruptured tibial-fibular ligament right ankle 2. Exostosis right tibia 3. Exostosis right fibula Postoperative Diagnosis: 1. Same 2. Same 3. Same Procedure(s) Performed: 1. Open repair of syndesmosis right ankle 2. Excision of bone right tibia 3. Excision of bone right fibula Implants: 1. Arthrex 4.75 mm swivel lock 2. Arthrex 3.5 mm swivel lock 3. Arthrex tight rope Anesthesia: GETA Surgeon: Artemio Lujan Estimated Blood Loss (ml): 5 Pathology: other (Bone right tibia) Condition: stable Disposition: PACU Indications for Procedure: The patient had suffered an ankle injury several years prior to her initial ap pointment with me. She indicated that she had a "growth plate fracture" patient stated that she has had ankle pain since the injury. X-rays revealed an exostosis over the tibia and fibula near the area of the syndesmosis. Computed tomography scan confirmed that there was a osseous bridge over the anterior aspect of the syndesmosis between the fibula and tibia. Operative Findings: Large exostosis any the syndesmosis between the tibia and fibula. Marked instability of the anterior inferior tibial-fibular ligament Description of Procedure: Prior to the patient being brought to the operating room anesthesia administered a nerve block on the right lower extremity under mild sedation and utilizing ultrasonic guidance. Once completed the patient was brought into the operating room placed on table supine position. Timeout was taken to confirm correct patient identifiers, correct surgery, and correct site of surgery. When the room was in agreement the patient was induced placed under general anesthesia. A well-padded tourniquet was placed on the right calf. A wedge was placed underneath the right hip to internally rotate the right leg. Then the right leg was prepped and draped usual manner. The leg was exsanguinated and the tourniquet inflated to 250 mmHg. Tension was directed over the anterior lateral ankle where a linear incision was made in the area of the syndesmosis. Deepened down through the saphenous layer careful to identify, avoid, and retract any neurovascular structures and cauterize any bleeding vessels. Blunt dissection was continued down to level of the anterior ankle joint capsule as well as the anterior inferior tibial-fibular ligament. Immediately noticeable was a large exostosis in the area of co mplaint. Utilizing a combination of osteotomes and a Truman the exostosis both on the tibia and the fibula were removed. A portion of the bone of the tibia was sent to pathology for evaluation. Continued excision of bone from both fibula and tibia were done until the articulation between those 2 structures was noted. Stress of the ankle indicated significant stability of the syndesmosis. All roughened edges were smoothed with a bone rasp and then the area thoroughly irrigated. Then a drill hole for a 4.75 mm swivel lock anchor was made in the anterior lateral tibia avoiding the syndesmosis and ankle joint. Reduction clamps were placed across the joint and then the suture attached the tibial swivel lock was then inserted into the 3.5 mm swivel lock. Second drill hole was made in the fibula and the suture in swivel lock were inserted properly tensioning the suture. A second drill holes made in the fibula for the second arm of the suture utilizing a similar technique. Then a guidewire for the Arthrex tight rope was placed on the lateral side of the fibula was then advanced under direct fluoroscopic visualization from lateral to medial. Lateral view under fluoroscopy also showed that was exiting appropriately the medial aspect of the tibia The drill was placed over the wire and a drill hole was placed through and through the fibula through the medial cortex of the tibia. The drill bit and the wire were removed and then the tight rope inserted until the medial button clear the tibia. The suture button was deployed until it laid flat against the tibia and the steam bone press tender was removed. With the reduction clamp still in place and ankle maxillae dorsiflexed the sutures for the tight rope were then tightened until the lateral button engaged the cortex of the fibula. The clamp was then removed and the ankle was stressed under live fluoroscopy and there was no abnormal movement into the tibia and fibula and no abnormal medial joint space gapping. The wound is then thoroughly irrigated with saline. Deep closure was done with 2-0 Vicryl. Subcu closure done for Monocryl. And skin closure done with 3-0 Stratafix in a running subcuticular manner. Dermal glue and Steri-Strips are placed across incision. An Arthrex jumpstart dressing was placed over the incision. Dry sterile dressings applied the right foot and ankle. The tourniquet was released and capillary refill return to all digits on the right foot. Then the patient was placed in a well molded well-padded plaster posterior mold/sugar tong splint. Ankle was held in neutral position as the splint dried once dried anesthesia was reversed and the patient taken recovery with vital signs stable
[2020-11-23] MEDS: HYDROmorphone 0.5 MG/0.5 ML SYRINGE IVP PRN ×2 (12:42→12:51)
--- NOTE | 2020-11-23 12:48 | XR ---
EXAMINATION TYPE: XR ankle limited RT DATE OF EXAM: 11/23/2020 COMPARISON: CT 10/25/2020 HISTORY: Right ankle fracture TECHNIQUE: Single nondiagnostic image from intraoperative procedure of the right ankle was submitted for review. FINDINGS: Paper copy of an intraoperative image of the right ankle was submitted for review. For full details p lease see the operative report. IMPRESSION: Paper copy of an intraoperative image of the right ankle was submitted for review. For full details p lease see the operative report.
--- NOTE | 2020-11-23 13:13 | FL ---
Fluoroscopy HISTORY: Ankle fracture 54 seconds fluoroscopy time supplied to the referring clinician. 1 intraoperative C-arm images docum ent the procedure. See dictated report from surgery.
[2020-11-23 13:50] VITALS: BP 151/103; PULSE 92; RESP 16
== END | disposition home or self-care (01) ==
LOC: OR 09:11
PROVIDERS: ATTEND Podiatrist
DX: S93.431A Sprain of tibiofibular ligament of right ankle, initial encounter (principal); X58.XXXA Exposure to other specified factors, initial encounter; M89.9 Disorder of bone, unspecified; I10 Essential (primary) hypertension; E78.5 Hyperlipidemia, unspecified; Z87.891 Personal history of nicotine dependence; E66.01 Morbid (severe) obesity due to excess calories; Z68.43 Body mass index [BMI] 50.0-59.9, adult; K21.9 Gastro-esophageal reflux disease without esophagitis; Z79.899 Other long term (current) drug therapy
CPT/HCPCS: 64447; 81025; 64445; 76942; 88304; 88311; 73600; 27829; C1713 ×2; J2250; J0330; J1100; J0690 ×2; J2405; J2001; J3010; J2795; J1885; J2704; J1170

== ENCOUNTER → 2021-12-18 | Outpatient (CLI) | payer MEDICARE, OTHER ==
--- NOTE | 2021-12-18 12:29 | FL ---
EXAMINATION TYPE: FL barium swallow DATE OF EXAM: 12/18/2021 CLINICAL INDICATION: 21-year-old female K44.9 DIAPHRAGMATIC HERNIA WITHOUT OBSTRUCTION COMPARISON: None Total Fluoroscopy Time: 1 minute 35 seconds 46 images obtained. FINDINGS: The swallowing mechanism is normal and hypopharyngeal anatomy is preserved. The cervical and thoracic portions have a normal course and caliber. There is mild dysmotility distal ly with some hesitancy in complete clearance from the distal esophagus and occasional episode of intr aesophageal reflux. The mucosa is normal and no persistent filling defect is encountered. There is a small sliding hiatal hernia. Valsalva and positional maneuvers demonstrates trace gastroes ophageal reflux during the course of the study. This may be underestimated. IMPRESSION: 1. Mild distal esophageal dysmotility. 2. Small sliding hiatal hernia. During the course of the exam, we were only able to visualize trace g astroesophageal reflux which is likely underestimated.
== END | disposition home or self-care (01) ==
LOC: RADUSWWP 11:06
PROVIDERS: ATTEND Surgery Plastic and Reconstructive Surgery
DX: K44.9 Diaphragmatic hernia without obstruction or gangrene (principal)
CPT/HCPCS: 74220